=== PATIENT | female | born 1995 | race Hispanic/Latino ===

== ENCOUNTER 2019-02-26 09:42 | Emergency (ER) | payer BC ==
--- NOTE | 2019-02-26 11:09 | RAD REPORT ---
EXAM DESCRIPTION: RAD - Ankle Right 3 View - 02/26/2019 10:45 am CLINICAL HISTORY: Twist and fall, ankle pain COMPARISON: None. FINDINGS: Spiral fracture of the distal fibula is present. No angulation deformity on only very smal l 1 millimeter distraction. Small fracture fragments are present at the proximal end of the fracture site. Tibia is intact. No joint effusion seen. No joint space narrowing. Lateral soft tissue swelling . IMPRESSION: Distal right fibula fracture with no significant distraction or angulation deformity.
[2019-02-26] MEDS ORDERED: CEPHALEXIN 250 MG CAP ONE (11:42)
[2019-02-26] MEDS ORDERED: HYDROCODONE/APAP 5/325 MG TAB ONE (11:42)
--- NOTE | 2019-02-26 12:00 | ER ---
Nurse's Notes [facility] Name: Ana Rodriguez Age: 23 yrs Sex: Female : 1995 Arrival Date: 02/26/2019 Time: 09:44 Bed 13 Private MD: Becky Ward H Diagnosis: Fall on same level, unspecified;Spiral fx of right distal fibula Presentation: 02/26 10:10 Presenting complaint: Patient states: R ankle pain and swelling that began last night ss after falling from a standing position. Transition of care: patient was not received from another setting of care. Onset of symptoms was February 25, 2019. Risk Assessment: Do you want to hurt yourself or someone else? Patient reports no desire to harm self or others. Initial Sepsis Screen: Does the patient meet any 2 criteria? No. Patient's initial sepsis screen is negative. Does the patient have a suspected source of infection? No. Patient's initial sepsis screen is negative. Care prior to arrival: None. 10:10 Method Of Arrival: Ambulatory ss 10:10 Acuity: MARIE 4 ss [place] GRINDER: 10:15 LMP 02/18/2019 rb1 Historical: - Allergies: 10:11 No Known Allergies; ss - Home Meds: 10:11 None [Active]; ss - PMHx: 10:11 None; ss - PSHx: 10:11 None; ss - Immunization history:: Adult Immunizations up to date. - Social history:: Smoking status: Patient/guardian denies using tobacco. - Ebola Screening: : Patient denies exposure to infectious person Patient denies travel to an Ebola-affected area in the 21 days before illness onset. Screenin:15 Abuse screen: Denies threats or abuse. Nutritional screening: No deficits noted. rb1 Tuberculosis screening: No symptoms or risk factors identified. Fall Risk Fall in past 12 months (25 points). No secondary diagnosis (0 pts). No IV (0 pts). Ambulatory Aid- None/Bed Rest/Nurse Assist (0 pts). Gait- Normal/Bed Rest/Wheelchair (0 pts) Mental Status- Oriented to own ability (0 pts). Assessment: 10:15 General: Appears uncomfortable, Behavior is calm, cooperative. General: Pt. reports rb1 falling on the concrete last night. Denies hitting her head or LOC.. Pain: Complains of pain in right ankle Pain currently is 4 out of 10 on a pain scale. Aggravated by weight bearing. Neuro: Level of Consciousness is awake, alert, obeys commands, Oriented to person, place, time, situation. Cardiovascular: Capillary refill < 3 seconds is brisk in bilateral fingers. Respiratory: Airway is patent Respiratory effort is even, unlabored, Respiratory pattern is regular, symmetrical. GI: No signs and/or symptoms were reported involving the gastrointestinal system. : No signs and/or symptoms were reported regarding the genitourinary system. Derm: Skin is pink, warm \T\ dry. Derm: Abrasions noted to bilateral ankles and bilateral knees. Musculoskeletal: Swelling present in right ankle. 11:10 Reassessment: Patient appears in no apparent distress at this time. No changes from rb1 previously documented assessment. Mother at bedside. 12:30 Reassessment: Patient appears in no apparent distress at this time. Patient and/or rb1 family updated on plan of care and expected duration. Pain level reassessed. Patient is alert, oriented x 3, equal unlabored respirations, skin warm/dry/pink. Vital Signs: 10:11 BP 130 / 60; Pulse 89; Resp 16; Temp 98.2(TE); Pulse Ox 98% on R/A; Weight 99.79 kg; ss Height 5 ft. 5 in. (165.10 cm); Pain 4/10; 12:15 BP 117 / 71; Pulse 88; Resp 16; Temp 98.0(O); Pulse Ox 97% on R/A; Pain 2/10; rb1 10:11 Body Mass Index 36.61 (99.79 kg, 165.10 cm) ED Course: 09:44 Patient arrived in ED. ag5 09:45 Becky Ward DO is Private Physician. ag5 10:00 Trupti Lion [facility]C [facility]. snw 10:00 Martinez Gill MD is Attending Physician. snw 10:11 Triage completed. ss 10:11 Arm band placed on right wrist. ss 10:14 Chrissy Chaudhry, RN is Primary Nurse. rb1 10:15 Patient has correct armband on for positive identification. Bed in low position. Call rb1 light in reach. Side rails up X 1. Pulse ox on. NIBP on. 10:45 Ankle Right 3 View XRAY In Process Unspecified. EDMS 11:58 Genaro Avelar MD is Referral Physician. snw 12:15 RIGHT POSTERIOR SPLINT WITH RENETTA ZAMUDIO. Orthoglass splint: Posterior short lleg splint kj1 applied on right leg. 12:35 Patient did not have IV access during this emergency room visit. rb1 Administered Medications: 11:47 Drug: Hibiclens 4 % 1 application Route: Topical; Site: wound; rb1 11:49 Drug: [place] 5 mg-325 mg 1 tabs Route: PO; rb1 12:30 Follow up: Response: No adverse reaction; Pain is decreased rb1 11:49 Drug: KeFLEX 500 mg Route: PO; rb1 12:30 Follow up: Response: No adverse reaction; Pain is decreased rb1 Outcome: 12:00 Discharge ordered by MD. snw 12:35 Discharged to home via wheelchair, with crutches, with family. rb1 12:35 Condition: stable 12:35 Discharge instructions given to patient, Instructed on discharge instructions, follow up and referral plans. medication usage, Demonstrated understanding of instructions, follow-up care, medications, Prescriptions given X 3. 12:35 Patient left the ED. rb1 Signatures: Dispatcher [employer] EDVT Trupti Lion, MARKIE-C SUPERVISORY IT SPECIALIST-CsnSydnee Tijerina RN RN Chrissy Chaudhry RN RN rb1 Esthela Fleming ag5 Cecily Solano kj1 Corrections: (The following items were deleted from the chart) 12:41 12:40 Patient left the ED. rb1 rb1
--- NOTE | 2019-02-26 12:01 | EDPHYS ---
Physician Documentation [facility] Name: Ana Rodriguez Age: 23 yrs Sex: Female : 1995 Arrival Date: 02/26/2019 Time: 09:44 Bed 13 Private MD: Becky Ward H ED Physician Martinez Gill HPI: 02/26 11:55 This 23 yrs old Female presents to ER via Ambulatory with complaints of Fall snw Injury, Ankle Injury. 11:55 Details of fall: The patient fell from an upright position, while walking. Onset: The snw symptoms/episode began/occurred suddenly, last night. Associated injuries: The patient sustained right ankle, abrasion, decreased range of motion, painful injury, swelling. Severity of symptoms: At their worst the symptoms were moderate. The patient has not experienced similar symptoms in the past. It is unknown whether or not the patient has recently seen a physician. HIV/AIDS CARE NURSE: 10:15 LMP 02/18/2019 rb1 Historical: - Allergies: 10:11 No Known Allergies; ss - Home Meds: 10:11 None [Active]; ss - PMHx: 10:11 None; ss - PSHx: 10:11 None; ss - Immunization history:: Adult Immunizations up to date. - Social history:: Smoking status: Patient/guardian denies using tobacco. - Ebola Screening: : Patient denies exposure to infectious person Patient denies travel to an Ebola-affected area in the 21 days before illness onset. ROS: 11:55 Constitutional: Negative for fever, chills, and weight loss, Eyes: Negative for injury, snw pain, redness, and discharge, ENT: Negative for injury, pain, and discharge, Neck: Negative for injury, pain, and swelling, Cardiovascular: Negative for chest pain, palpitations, and edema, Respiratory: Negative for shortness of breath, cough, wheezing, and pleuritic chest pain, Abdomen/GI: Negative for abdominal pain, nausea, vomiting, diarrhea, and constipation, Back: Negative for injury and pain, : Negative for injury, bleeding, discharge, and swelling, Skin: Negative for injury, rash, and discoloration, Neuro: Negative for headache, weakness, numbness, tingling, and seizure. 11:55 MS/extremity: Positive for injury or acute deformity, pain, swelling, of the right ankle. Exam: 11:52 Constitutional: This is a well developed, well nourished patient who is awake, alert, snw and in no acute distress. Head/Face: Normocephalic, atraumatic. Eyes: Pupils equal round and reactive to light, extra-ocular motions intact. Lids and lashes normal. Conjunctiva and sclera are non-icteric and not injected. Cornea within normal limits. Periorbital areas with no swelling, redness, or edema. ENT: Nares patent. No nasal discharge, no septal abnormalities noted. Tympanic membranes are normal and external auditory canals are clear. Oropharynx with no redness, swelling, or masses, exudates, or evidence of obstruction, uvula midline. Mucous membranes moist. Neck: Trachea midline, no thyromegaly or masses palpated, and no cervical lymphadenopathy. Supple, full range of motion without nuchal rigidity, or vertebral point tenderness. No Meningismus. Chest/axilla: Normal chest wall appearance and motion. Nontender with no deformity. No lesions are appreciated. Cardiovascular: Regular rate and rhythm with a normal S1 and S2. No gallops, murmurs, or rubs. Normal PMI, no JVD. No pulse deficits. Respiratory: Lungs have equal breath sounds bilaterally, clear to auscultation and percussion. No rales, rhonchi or wheezes noted. No increased work of breathing, no retractions or nasal flaring. Abdomen/GI: Soft, non-tender, with normal bowel sounds. No distension or tympany. No guarding or rebound. No evidence of tenderness throughout. Back: No spinal tenderness. No costovertebral tenderness. Full range of motion. Neuro: Awake and alert, GCS 15, oriented to person, place, time, and situation. Cranial nerves II-XII grossly intact. Motor strength 5/5 in all extremities. Sensory grossly intact. Cerebellar exam normal. Normal gait. Psych: Awake, alert, with orientation to person, place and time. Behavior, mood, and affect are within normal limits. 11:52 Skin: Appearance: normal except for affected area, injury, abrasion(s), moderate sized abrasion noted, of the right medial malleolus, lateral ankle with edema, tenderness. Vital Signs: 10:11 BP 130 / 60; Pulse 89; Resp 16; Temp 98.2(TE); Pulse Ox 98% on R/A; Weight 99.79 kg; ss Height 5 ft. 5 in. (165.10 cm); Pain 4/10; 12:15 BP 117 / 71; Pulse 88; Resp 16; Temp 98.0(O); Pulse Ox 97% on R/A; Pain 2/10; rb1 10:11 Body Mass Index 36.61 (99.79 kg, 165.10 cm) ss MDM: 10:16 Patient medically screened. snw 12:01 Data reviewed: vital signs, nurses notes. Data interpreted: Pulse oximetry: on room air snw is 98 %. Interpretation: normal. Counseling: I had a detailed discussion with the patient and/or guardian regarding: the historical points, exam findings, and any diagnostic results supporting the discharge/admit diagnosis, radiology results, the need for outpatient follow up, to return to the emergency department if symptoms worsen or persist or if there are any questions or concerns that arise at home. Special discussion: Based on the history and exam findings, there is no indication for further emergent testing or inpatient evaluation. I discussed with the patient/guardian the need to see the orthopedic surgeon for further evaluation of the symptoms. I discussed with the patient/guardian the need to see the primary care provider for further evaluation of the symptoms. 02/26 10:17 Order name: Ankle Right 3 View XRAY; Complete Time: 11:34 snw 02/26 11:35 Order name: Posterior Orthoglass Ankle Splint; Complete Time: 12:23 snw 02/26 11:35 Order name: Crutches; Complete Time: 11:37 snw Administered Medications: 11:47 Drug: Hibiclens 4 % 1 application Route: Topical; Site: wound; rb1 11:49 Drug: [place] 5 mg-325 mg 1 tabs Route: PO; rb1 12:30 Follow up: Response: No adverse reaction; Pain is decreased rb1 11:49 Drug: KeFLEX 500 mg Route: PO; rb1 12:30 Follow up: Response: No adverse reaction; Pain is decreased rb1 Disposition: 17:53 Co-signature as Attending Physician, Martinez Gill MD. rn Disposition: 02/26/19 12:00 Discharged to Home. Impression: Fall on same level, unspecified, Spiral fx of right distal fibula. - Condition is Stable. - Discharge Instructions: Ankle Fracture, Cast or Splint Care, Adult, Crutch Use, Fall Prevention in the Home, RICE for Routine Care of Injuries. - Prescriptions for Mobic 7.5 mg Oral Tablet - take 1 tablet by ORAL route once daily take with food; 20 tablet. Ultram 50 mg Oral Tablet - take 1 tablet by ORAL route every 6 hours As needed; 12 tablet. Keflex 500 mg Oral Capsule - take 1 capsule by ORAL route every 8 hours for 10 days; 30 capsule. - Work release form, Medication Reconciliation Form, Thank You Letter, Antibiotic Education, Prescription Opioid Use form. - Follow up: Emergency Department; When: As needed; Reason: Worsening of condition. Follow up: Genaro Avelar MD; When: 5 - 6 days; Reason: Recheck today's complaints, Continuance of care. Signatures: Dispatcher [employer] EDMS Trupti Lion, DRAW TENDER-C DRAW TENDER-Csnw Martinez Gill MD MD rn Smirch, Shelby RN RN Chrissy Beyer, RN RN rb1 Corrections: (The following items were deleted from the chart) 12:40 12:00 02/26/2019 12:00 Discharged to Home. Impression: Fall on same level, unspecified; rb1 Spiral fx of right distal fibula. Condition is Stable. Forms are Medication Reconciliation Form, Thank You Letter, Antibiotic Education, Prescription Opioid Use. Follow up: Emergency Department; When: As needed; Reason: Worsening of condition. Follow up: Genaro Avelar; When: 5 - 6 days; Reason: Recheck today's complaints, Continuance of care. snw
[2019-02-26 13:29] VITALS: BP 117/71; TEMP 98; O2SAT 97
== END 2019-02-26 12:40 | disposition home or self-care (01) ==
LOC: ER 09:42
DX: S82.441A Displaced spiral fracture of shaft of right fibula, initial encounter for closed fracture (principal); W18.30XA Fall on same level, unspecified, initial encounter; Y93.9 Activity, unspecified; Y92.9 Unspecified place or not applicable
CPT/HCPCS: 99284

== ENCOUNTER 2019-05-26 09:21 | Emergency (ER) | payer BC ==
[2019-05-26] MEDS ORDERED: ACETAMINOPHEN 325 MG TABLET ONE (10:00)
[2019-05-26] MEDS ORDERED: KETOROLAC 30 MG/ML INJ ONE (10:01)
--- NOTE | 2019-05-26 10:16 | ER ---
Nurse's Notes [facility] Name: Ana Rodriguez Age: 24 yrs Sex: Female : 1995 Arrival Date: 05/26/2019 Time: 09:24 Bed 17 Private MD: Diagnosis: Influenza due to identified novel influenza A virus Presentation: 05/26 09:40 Presenting complaint: Patient states: ROSAS, light sensitivity, cough, sneezing since [facility] yesterday, temp yesterday was 103, reports no medications taken today. Transition of care: patient was not received from another setting of care. Onset of symptoms was May 25, 2019. Risk Assessment: Do you want to hurt yourself or someone else? Patient reports no desire to harm self or others. Initial Sepsis Screen: Does the patient meet any 2 criteria? HR > 90 bpm. No. Patient's initial sepsis screen is negative. Does the patient have a suspected source of infection? No. Patient's initial sepsis screen is negative. Care prior to arrival: None. 09:40 Method Of Arrival: Ambulatory [facility] 09:40 Acuity: MARIE 4 [facility] Triage Assessment: 09:43 Headache History: The patient has had previous headaches and this one is similar to [facility] previous episodes. General: Appears in no apparent distress. uncomfortable, ill, Behavior is calm, cooperative, appropriate for age. Pain: Complains of pain in ROSAS Pain currently is 6 out of 10 on a pain scale. Quality of pain is described as pressure, Pain began 1 day ago. Is continuous, Also complains of photophobia. EENT: No signs and/or symptoms were reported regarding the EENT system. Neuro: Level of Consciousness is awake, alert, obeys commands, Oriented to person, place, time, situation. Cardiovascular: Patient's skin is warm and dry. Respiratory: Airway is patent Respiratory effort is even, unlabored, Respiratory pattern is regular, symmetrical, Breath sounds are clear bilaterally. Derm: Skin is pink, warm \T\ dry. WORK ORDER SORTING CLERK: 09:43 LMP 05/25/2019 [facility] Historical: - Allergies: 09:43 No Known Allergies; jl7 - Home Meds: 09:43 Control [Active]; jl7 - PMHx: :43 None; jl7 - PSHx: 09:43 None; jl7 - Immunization history:: Adult Immunizations not up to date. - Social history:: Smoking status: Patient/guardian denies using tobacco. - Ebola Screening: : No symptoms or risks identified at this time. Screenin:30 Abuse screen: Denies threats or abuse. Denies injuries from another. Nutritional jl7 screening: No deficits noted. Tuberculosis screening: No symptoms or risk factors identified. Fall Risk None identified. Assessment: 09:30 General: See triage assessment. jl7 10:13 Reassessment: Patient appears in no apparent distress at this time. Patient is alert, ca1 oriented x 3, equal unlabored respirations, skin warm/dry/pink. Pain: Complains of pain in face and scalp. Vital Signs: 09:43 BP 113 / 72; Pulse 102; Resp 17 S; Temp 100(O); Pulse Ox 96% on R/A; Weight 102.06 kg jl7 (R); Height 5 ft. 5 in. (165.10 cm) (R); Pain 6/10; 10:13 BP 104 / 76; Pulse 102; Resp 16 S; Pulse Ox 98% on R/A; ca1 10:25 Temp 98(O); ca1 09:43 Body Mass Index 37.44 (102.06 kg, 165.10 cm) jl7 ED Course: 09:24 Patient arrived in ED. as 09:30 Nuria Mosley RN is Primary Nurse. jl7 09:30 Patient has correct armband on for positive identification. Bed in low position. Call jl7 light in reach. Side rails up X 1. Pulse ox on. NIBP on. 09:35 Víctor Massey PA is PHCP. jr8 09:35 Maritnez Gill MD is Attending Physician. jr8 09:42 Triage completed. jl7 09:43 Arm band placed on right wrist. jl7 09:50 Flu and/or RSV swab sent to lab. jl7 10:09 Report given to SRINI Linares. jl7 10:10 Primary Nurse role handed off by Nuria Mosley RN jl7 10:13 Milargos Mcdaniels RN is Primary Nurse. ca1 10:25 No provider procedures requiring assistance completed. Patient did not have IV access ca1 during this emergency room visit. Administered Medications: 10:04 Drug: Tylenol 650 mg Route: PO; jl7 10:22 Follow up: Response: No adverse reaction; Pain is decreased ca1 10:05 Drug: TORadol 30 mg Route: IM; Site: right deltoid; ca1 10:21 Follow up: Response: No adverse reaction; Temperature is decreased ca1 10: Drug: Tamiflu 75 mg Route: PO; ca1 10:22 Follow up: Response: Medication administered at discharge. ca1 Outcome: 10:14 Discharge ordered by MD. castillo 10:25 Discharged to home ambulatory. ca1 10: Condition: stable 10:25 Discharge instructions given to patient, Instructed on discharge instructions, follow up and referral plans. medication usage, Demonstrated understanding of instructions, follow-up care, medications, Prescriptions given X 1. 10:26 Patient left the ED. ca1 Signatures: Ana Pollock Josh, PA PA jr8 Leal, Jahala, RN RN jl7 Milagros Mcdaniels RN RN ca1
--- NOTE | 2019-05-26 10:16 | EDPHYS ---
Physician Documentation [facility] Name: Ana Rodriguez Age: 24 yrs Sex: Female : 1995 Arrival Date: 05/26/2019 Time: 09:24 Bed 17 Private MD: ED Physician Martinez Gill HPI: 05/26 10:11 This 24 yrs old Female presents to ER via Ambulatory with complaints of jr8 Headache. 10:11 The patient complains of pain to the diffuse . The patient describes the headache as jr8 throbbing. Onset: The symptoms/episode began/occurred acutely, today. Associated signs and symptoms: Pertinent positives: fever, Photophobia runny nose, cough, congestion, diarrhea. Severity of symptoms: At its worst the pain was moderate, in the emergency department the pain is unchanged. Headache History: Denies prior headaches. The patient has not experienced similar symptoms in the past. The patient has not recently seen a physician. 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 - Social history:: Smoking status: Patient/guardian denies using tobacco. - Ebola Screening: : No symptoms or risks identified at this time. ROS: 10:11 Eyes: Negative for injury, pain, redness, and discharge, Neck: Negative for injury, jr8 pain, and swelling, Cardiovascular: Negative for chest pain, palpitations, and edema, Back: Negative for injury and pain, MS/Extremity: Negative for injury and deformity, Skin: Negative for injury, rash, and discoloration. 10:11 Constitutional: Positive for fever. 10:11 ENT: Positive for rhinorrhea, sinus congestion. 10:11 Respiratory: Positive for cough, Negative for dyspnea on exertion, shortness of breath, sputum production, wheezing. 10:11 Abdomen/GI: Positive for diarrhea, Negative for abdominal pain, nausea, vomiting. 10:11 Neuro: Positive for headache. Exam: 10:11 Eyes: Pupils equal round and reactive to light, extra-ocular motions intact. Lids and jr8 lashes normal. Conjunctiva and sclera are non-icteric and not injected. Cornea within normal limits. Periorbital areas with no swelling, redness, or edema. ENT: Nares patent. No nasal discharge, no septal abnormalities noted. Tympanic membranes are normal and external auditory canals are clear. Oropharynx with no redness, swelling, or masses, exudates, or evidence of obstruction, uvula midline. Mucous membranes moist. Neck: Trachea midline, no thyromegaly or masses palpated, and no cervical lymphadenopathy. Supple, full range of motion without nuchal rigidity, or vertebral point tenderness. No Meningismus. Cardiovascular: Regular rate and rhythm with a normal S1 and S2. No gallops, murmurs, or rubs. Normal PMI, no JVD. No pulse deficits. Respiratory: Lungs have equal breath sounds bilaterally, clear to auscultation and percussion. No rales, rhonchi or wheezes noted. No increased work of breathing, no retractions or nasal flaring. Abdomen/GI: Soft, non-tender, with normal bowel sounds. No distension or tympany. No guarding or rebound. No evidence of tenderness throughout. Back: No spinal tenderness. No costovertebral tenderness. Full range of motion. Skin: Warm, dry with normal turgor. Normal color with no rashes, no lesions, and no evidence of cellulitis. MS/ Extremity: Pulses equal, no cyanosis. Neurovascular intact. Full, normal range of motion. Neuro: Awake and alert, GCS 15, oriented to person, place, time, and situation. Cranial nerves II-XII grossly intact. Motor strength 5/5 in all extremities. Sensory grossly intact. Cerebellar exam normal. Normal gait. Vital Signs: 09:43 BP 113 / 72; Pulse 102; Resp 17 S; Temp 100(O); Pulse Ox 96% on R/A; Weight 102.06 kg 7 (R); Height 5 ft. 5 in. (165.10 cm) (R); Pain 6/10; 10:13 BP 104 / 76; Pulse 102; Resp 16 S; Pulse Ox 98% on R/A; ca1 10:25 Temp 98(O); ca1 09:43 Body Mass Index 37.44 (102.06 kg, 165.10 cm) [facility] MDM: 09:35 Patient medically screened. jr8 10:14 Data reviewed: vital signs, nurses notes, lab test result(s), Flu: positive and as a jr8 result, I will discharge patient. Data interpreted: Pulse oximetry: on room air is 96 %. Interpretation: normal. Counseling: I had a detailed discussion with the patient and/or guardian regarding: the historical points, exam findings, and any diagnostic results supporting the discharge/admit diagnosis, lab results, the need for outpatient follow up, a family practitioner, to return to the emergency department if symptoms worsen or persist or if there are any questions or concerns that arise at home. Response to treatment: the patient's symptoms have markedly improved after treatment. 05/26 09:49 Order name: Influenza Screen (a \T\ B); Complete Time: 10:13 jr8 Administered Medications: 10:04 Drug: Tylenol 650 mg Route: PO; jl7 10:22 Follow up: Response: No adverse reaction; Pain is decreased ca1 10:05 Drug: TORadol 30 mg Route: IM; Site: right deltoid; ca1 10:21 Follow up: Response: No adverse reaction; Temperature is decreased ca1 10:21 Drug: Tamiflu 75 mg Route: PO; ca1 10:22 Follow up: Response: Medication administered at discharge. ca1 Disposition: 11:35 Co-signature as Attending Physician, Martinez Gill MD. rn Disposition: 05/26/19 10:14 Discharged to Home. Impression: Influenza due to identified novel influenza A virus. - Condition is Stable. - Discharge Instructions: Influenza, Adult. - Prescriptions for Tamiflu 75 mg Oral Capsule - take 1 capsule by ORAL route every 12 hours for 5 days; 10 capsule. - Medication Reconciliation Form, Thank You Letter, Antibiotic Education, Prescription Opioid Use, Work release form form. - Follow up: Private Physician; When: As needed; Reason: Recheck today's complaints, Continuance of care, Re-evaluation by your physician. - Problem is new. - Symptoms have improved. Signatures: Dispatcher [employer] EDMS Martinez Gill MD MD rn Roszak, Josh, PA PA jr8 Nuria Mosley RN RN jl7 Milagros Mcdaniels RN RN ca1 Corrections: (The following items were deleted from the chart) 10:26 10:14 05/26/2019 10:14 Discharged to Home. Impression: Influenza due to identified ca1 novel influenza A virus. Condition is Stable. Forms are Medication Reconciliation Form, Thank You Letter, Antibiotic Education, Prescription Opioid Use. Follow up: Private Physician; When: As needed; Reason: Recheck today's complaints, Continuance of care, Re-evaluation by your physician. Problem is new. Symptoms have improved. jr8
[2019-05-26] MEDS ORDERED: OSELTAMIVIR 75 MG CAP ONE (10:19)
[2019-05-26 10:35] VITALS: BP 104/76; O2SAT 98
[2019-05-26 10:36] VITALS: TEMP 98
== END 2019-05-26 10:26 | disposition home or self-care (01) ==
LOC: ER 09:21
DX: J10.1 Influenza due to other identified influenza virus with other respiratory manifestations (principal)
CPT/HCPCS: 87804; 96372; 99284

== ENCOUNTER 2020-12-29 15:52 | Emergency (ER) | payer BC ==
[2020-12-29 16:14] LABS: Urine Blood 1+ (Negative); Urine Glucose Negative (Negative); Urine Protein 1+ (Negative); Urine Specific Gravity 1.015 (1.005-1.030)
[2020-12-29 16:27] LABS: Urine Specific Gravity/Preg 1.015 (1.005-1.030)
--- NOTE | 2020-12-29 17:19 | RAD REPORT ---
EXAM DESCRIPTION: RAD - Chest Single View - 12/29/2020 4:50 pm CLINICAL HISTORY: Cough;Fever COMPARISON: None TECHNIQUE: AP portable chest image was obtained 12/29/2020 4:50 pm . FINDINGS: No dense consolidation seen. Medial right base lung markings are fractionally increased ov er the left. No failure or volume overload. Heart and vasculature are normal. No measurable pleural e ffusion and no pneumothorax. No acute bony abnormality seen. No acute aortic findings suspected. IMPRESSION: Suspected minimal or early pneumonia right lung base.
[2020-12-29 17:36] LABS: Basophils % 0.1 % (0-1.3); Hematocrit 39.6 % (36.0-45.0); Lymphocytes % 9.4 % (15.3-44.8); MPV 8.4 fL (7.6-11.3); RBC Red Blood Cell Count 4.92 M/uL (3.86-4.86)
[2020-12-29] MEDS ORDERED: NA CHLORIDE 0.9% 1,000 ML ONE (17:36)
[2020-12-29 17:40] LABS: ALT/SGPT 54 U/L (12-78); AST/SGOT 29 U/L (15-37); Albumin 3.5 g/dL (3.4-5.0); Alkaline Phosphatase 77 U/L (45-117); BUN Blood Urea Nitrogen 7 mg/dL (7-18); Bicarbonate 28 mmol/L (21-32); Bilirubin Direct 0.1 mg/dL (0-0.2); Bilirubin Total 0.5 mg/dL (0.2-1.0); Glucose Level 98 mg/dL (74-106); Lipase 70 U/L (73-393); Potassium 3.1 mmol/L (3.5-5.1); Protein, Total 8.1 g/dL (6.4-8.2); Sodium Level 137 mmol/L (136-145)
[2020-12-29 17:43] LABS: Urine Bacteria 20-50 /HPF (<20); Urine RBC <5 /HPF (NONE SEEN)
[2020-12-29] MEDS ORDERED: CEFTRIAXONE/SWI 1gm 1 GM/10 ML SYR ONE (18:33)
--- NOTE | 2020-12-29 18:34 | RAD REPORT ---
EXAM DESCRIPTION: CT - Abdomen Pelvis W Contrast - 12/29/2020 6:08 pm CLINICAL HISTORY: Flank pain;Fever COMPARISON: No comparisons TECHNIQUE: Biphasic, helical CT imaging of the abdomen and pelvis was performed following 100 ml non -ionic IV contrast. No oral contrast. All CT scans are performed using dose optimization technique as appropriate and may include automated exposure control or mA/KV adjustment according to patient size. FINDINGS: Two small sub centimeter noncalcified pulmonary nodules are seen at the right lung base. T hese are not likely of any long-term clinical significance in a patient this age. The noncalcified gr anulomas would be most likely. Diffuse fatty infiltration is present in the liver with no focal liver lesion. No portal vein abnorma lity. Spleen and pancreas are unremarkable. Gallbladder and biliary tree are also without suspicious finding. No hydronephrosis or obstructing calculus seen. There is heterogeneous enhancement of the renal paren chyma with areas of diminished attenuation and enhancement in both kidneys, worse on the right. No so lid mass lesion. Trace amount of edema seen in the perinephric fat. No bladder abnormalities. No adre nal abnormalities. Small cysts are present in the ovaries. No suspicious ovarian finding. No dilated bowel loops or bowel wall thickening. No appendicitis. No free air, free fluid or inflamma tory stranding. No hernia, mass or bulky lymphadenopathy. No suspicious bony findings. IMPRESSION: Mild bilateral pyelonephritis, worse on the right. No abscess or other emergent complication. Diffuse fatty infiltration of the liver.
[2020-12-29] MEDS ORDERED: CIPROFLOXACIN HCL 500 MG TAB ONE (19:12)
--- NOTE | 2020-12-29 19:31 | ER ---
Nurse's Notes [facility] Name: Ana Rodriguez Age: 25 yrs Sex: Female : 1995 Arrival Date: 12/29/2020 Time: 15:53 Bed 7 Private MD: Diagnosis: Pyelonephritis acute-bilateral Presentation: 12/29 15:56 Chief complaint: Patient states: headache, fever and fatigue x 3 days. [place] I had UTI ca1 last weekend but did not take antibiotics. Reports a little cough since yesterday. Coronavirus screen: Client denies travel out of the [place] in the last 14 days. cough unrelated to allergies, fatigue, fever, headache, Client presents with at least one sign or symptom that may indicate coronavirus-19. Standard/surgical mask placed on the client. Provider contacted for isolation considerations. Ebola Screen: Patient negative for fever greater than or equal to 101.5 degrees Fahrenheit, and additional compatible Ebola Virus Disease symptoms Patient denies exposure to infectious person. Patient denies travel to an Ebola-affected area in the 21 days before illness onset. No symptoms or risks identified at this time. Initial Sepsis Screen: Does the patient meet any 2 criteria? No. Patient's initial sepsis screen is negative. Does the patient have a suspected source of infection? No. Patient's initial sepsis screen is negative. Risk Assessment: Do you want to hurt yourself or someone else? Patient reports no desire to harm self or others. Onset of symptoms was December 29, 2020. 15:56 Method Of Arrival: Ambulatory ca1 15:56 Acuity: MARIE 3 ca1 Triage Assessment: 16:17 General:. Pain: Also complains of. ap3 16:17 General: Appears in no apparent distress. comfortable, Behavior is calm, cooperative, ap3 appropriate for age. Pain: Complains of pain in head Pain currently is 6 out of 10 on a pain scale. Pain began 2-3 days ago. 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 - Social history:: Smoking status: Patient denies any tobacco usage or history of. Screenin:17 Abuse screen: Denies threats or abuse. Nutritional screening: No deficits noted. ap3 Tuberculosis screening: No symptoms or risk factors identified. Fall Risk None identified. Assessment: 16:03 General: Appears in no apparent distress. comfortable, Behavior is calm, cooperative, ap3 appropriate for age. General: Reports fever for 1-2 days, feeling ill for 1-2 days. Pain: Complains of pain in head Pain does not radiate. Neuro: Level of Consciousness is awake, alert, obeys commands, Oriented to person, place, time, situation, Appropriate for age Moves all extremities. Gait is steady, Speech is normal. Neuro: Reports weakness. Cardiovascular: Denies chest pain, shortness of breath. Respiratory: Reports cough that is dry. GI: No signs and/or symptoms were reported involving the gastrointestinal system. : Reports dx of UTI last Thursday, but is not taking any medications for it. EENT: No signs and/or symptoms were reported regarding the EENT system. 18:39 Reassessment: Patient and/or family updated on plan of care and expected duration. Pain ap3 level reassessed. Patient is alert, oriented x 3, equal unlabored respirations, skin warm/dry/pink. SIGNIFICANT OTHER IS AT THE BEDSIDE. . 19:17 Reassessment: patient complaining of a sore neck. provider notified, and went to ap3 bedside. 19:43 Reassessment: Patient appears in no apparent distress at this time. Patient is alert, lp1 oriented x 3, equal unlabored respirations, skin warm/dry/pink. Patient states feeling better. Vital Signs: 15:56 BP 120 / 67; Pulse 108; Resp 18 S; Temp 99.8(O); Pulse Ox 99% on R/A; Weight 99.79 kg ca1 (R); Height 5 ft. 5 in. (165.10 cm) (R); Pain 6/10; 17:25 BP 113 / 82; Pulse 103; Resp 16; Pulse Ox 98% on R/A; ae4 18:35 BP 116 / 64; Pulse 106; Pulse Ox 100% on R/A; ap3 15:56 Body Mass Index 36.61 (99.79 kg, 165.10 cm) ca1 ED Course: 15:53 Patient arrived in ED. as 15:59 Triage completed. ca1 15:59 Arm band placed on right wrist. ca1 16:01 Patrice Hernandez, RN is Primary Nurse. ae4 16:17 Patient has correct armband on for positive identification. Bed in low position. Call ap3 light in reach. Side rails up X2. Adult w/ patient. Pulse ox on. NIBP on. Door closed. Noise minimized. 16:19 William Smith NP is PHCP. pm1 16:19 Alo Pace MD is Attending Physician. pm1 16:50 Chest Single View XRAY In Process Unspecified. EDMS 18:08 CT Abd/Pelvis - IV Contrast Only In Process Unspecified. EDMS 19:39 Primary Nurse role handed off by Patrice Hernandez, RN tt3 19:43 No provider procedures requiring assistance completed. IV discontinued, 20g IV to R AC lp1 DC'd. Administered Medications: 17:19 Drug: NS 0.9% 1000 ml Route: IV; Rate: 1000 ml; Site: right antecubital; ap3 18:16 Drug: Rocephin (cefTRIAXone) 1 grams Route: IV; Rate: calculated rate; Site: right ap3 antecubital; 18:34 Follow up: Response: No adverse reaction; IV Status: Completed infusion ap3 19:04 Drug: Cipro (ciprofloxacin) 500 mg Route: PO; ap3 19:04 Follow up: Response: No adverse reaction ap3 19:44 Drug: [place] (HYDROcodone-acetaminophen) (7.5 mg-325 mg) 1 tabs Route: PO; lp1 19:44 Follow up: Response: Medication administered at discharge. lp1 Outcome: 19:31 Discharge ordered by . pm1 19:44 Discharged to home ambulatory, with friend. lp1 19:44 Condition: good 19:44 Discharge instructions given to patient, Instructed on discharge instructions, follow up and referral plans. medication usage, Demonstrated understanding of instructions, follow-up care, medications, Prescriptions given X 2. 19:44 Patient left the ED. lp1 Addendum: 01/01/2021 07:40 Addendum: Culture Results: Positive urine culture. No further action required. Bacteria s s sensitive to prescribed antibiotic. Signatures: Dispatcher [employer] Ana Keys Shelby, RN RN ss Veronique Littlejohn, RN RN lp1 William Smith, CASE MANAGER CASE MANAGER pm1 Jasmine Ureña RN RN ap3 Milagros Mcdaniels, RN RN ca1 Patrice Hernandez RN RN ae4 [place] tt3
--- NOTE | 2020-12-29 19:31 | EDPHYS ---
Physician Documentation [facility] Name: Ana Rodriguez Age: 25 yrs Sex: Female : 1995 Arrival Date: 12/29/2020 Time: 15:53 Bed 7 Private MD: ED Physician Alo Pace HPI: 12/29 17:59 This 25 yrs old Female presents to ER via Ambulatory with complaints of Fever, pm1 Headache, Fatigue. 17:59 The patient reports fever, not measured (subjective). Onset: The symptoms/episode pm1 began/occurred 3 day(s) ago. Modifying factors: there are no obvious modifying factors. Associated signs and symptoms: Pertinent positives: cough, headache, Pertinent negatives: abdominal pain, diarrhea, earache, nausea, sore throat, vomiting. Severity of symptoms: in the emergency department the symptoms are unchanged. The patient has not recently seen a physician. Patient with burning and frequency onset 7 days ago that lasted for 3 days. Reports resolution of urinary symptoms. 3 days ago onset of fever and flank pain. Cough onset yesterday. 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 - Social history:: Smoking status: Patient denies any tobacco usage or history of. ROS: 17:59 Eyes: Negative for injury, pain, redness, and discharge, ENT: Negative for injury, pm1 pain, and discharge, Neck: Negative for injury, pain, and swelling, Cardiovascular: Negative for chest pain, palpitations, and edema. 17:59 MS/Extremity: Negative for injury and deformity, Skin: Negative for injury, rash, and discoloration. 17:59 Constitutional: Positive for fever, Negative for poor PO intake. 17:59 Respiratory: Positive for cough, Negative for shortness of breath, wheezing. 17:59 Back: Positive for flank pain, bilaterally. 17:59 : Positive for urinary frequency, burning with urination. 17:59 Neuro: Positive for headache, Negative for numbness, tingling, weakness. Exam: 17:59 Constitutional: This is a well developed, well nourished patient who is awake, alert, pm1 and in no acute distress. Head/Face: Normocephalic, atraumatic. 17:59 Back: No spinal tenderness. No costovertebral tenderness. Full range of motion. Skin: Warm, dry with normal turgor. Normal color with no rashes, no lesions, and no evidence of cellulitis. MS/ Extremity: Pulses equal, no cyanosis. Neurovascular intact. Full, normal range of motion. 17:59 Eyes: Exam is negative for acute changes, Extraocular movements: no acute changes, Conjunctiva: no acute changes, no injection, Sclera: no acute changes, icterus, is not appreciated. 17:59 ENT: Exam is negative for acute changes, Mouth: Lips: normal, Oral mucosa: normal, pink and intact, moist. 17:59 Cardiovascular: Exam negative for acute changes, Rate: tachycardic, Rhythm: regular, Pulses: no pulse deficits are appreciated. 17:59 Respiratory: Exam negative for acute changes, respiratory distress, shortness of breath, Breath sounds: are clear throughout. 17:59 Abdomen/GI: Exam negative for acute changes, Inspection: abdomen appears normal, Palpation: abdomen is soft and non-tender, in all quadrants. 17:59 Neuro: Exam negative for acute changes, Orientation: is normal, Mentation: is normal, Motor: is normal, moves all fours. Vital Signs: 15:56 BP 120 / 67; Pulse 108; Resp 18 S; Temp 99.8(O); Pulse Ox 99% on R/A; Weight 99.79 kg ca1 (R); Height 5 ft. 5 in. (165.10 cm) (R); Pain 6/10; 17:25 BP 113 / 82; Pulse 103; Resp 16; Pulse Ox 98% on R/A; ae4 18:35 BP 116 / 64; Pulse 106; Pulse Ox 100% on R/A; ap3 15:56 Body Mass Index 36.61 (99.79 kg, 165.10 cm) ca1 MDM: 16:20 Patient medically screened. pm1 19:29 Data reviewed: vital signs. Data interpreted: Pulse oximetry: on room air is 100 %. pm1 Interpretation: normal. 19:29 Counseling: I had a detailed discussion with the patient and/or guardian regarding: the pm1 historical points, exam findings, and any diagnostic results supporting the discharge/admit diagnosis, lab results, radiology results, the need for outpatient follow up, to return to the emergency department if symptoms worsen or persist or if there are any questions or concerns that arise at home. 12/29 16:14 Order name: Urine Dipstick-Ancillary; Complete Time: 16:24 EDMS 12/29 16:15 Order name: Urine --Ancillary (enter results) em12/29 16:16 Order name: Urine --Ancillary; Complete Time: 16:31 EDMS 12/29 16:24 Order name: Urine Microscopic Only; Complete Time: 17:49 pm1 12/29 16:28 Order name: Basic Metabolic Panel pm12/29 16:28 Order name: CBC with Diff pm12/29 16:28 Order name: Hepatic Function pm12/29 16:28 Order name: Lipase; Complete Time: 17:49 pm1 12/29 16:29 Order name: COVID-19 : Document "Date of Symptom Onset" if Symptomatic. pm1 12/29 16:29 Order name: Basic Metabolic Panel; Complete Time: 17:49 EDMS 12/29 16:29 Order name: CBC with Automated Diff; Complete Time: 17:37 EDMS 12/29 16:29 Order name: Liver (Hepatic) Function; Complete Time: 17:49 EDMS 12/29 16:29 Order name: Flu; Complete Time: 17:49 pm12/29 16:29 Order name: Strep; Complete Time: 17:35 pm12/29 16:28 Order name: IV Saline Lock; Complete Time: 17:14 pm12/29 16:28 Order name: Labs collected and sent; Complete Time: 17:14 pm12/29 16:28 Order name: Chest Single View XRAY; Complete Time: 17:26 pm12/29 17:42 Order name: Throat Culture ED12/29 17:43 Order name: Urine Culture EDMS 12/29 17:50 Order name: CT Abd/Pelvis - IV Contrast Only; Complete Time: 18:45 pm12/29 18:36 Order name: SARS-COV-2 RT PCR; Complete Time: 18:45 EDMS Administered Medications: 17:19 Drug: NS 0.9% 1000 ml Route: IV; Rate: 1000 ml; Site: right antecubital; ap3 18:16 Drug: Rocephin (cefTRIAXone) 1 grams Route: IV; Rate: calculated rate; Site: right ap3 antecubital; 18:34 Follow up: Response: No adverse reaction; IV Status: Completed infusion ap3 19:04 Drug: Cipro (ciprofloxacin) 500 mg Route: PO; ap3 19:04 Follow up: Response: No adverse reaction ap3 19:44 Drug: [place] (HYDROcodone-acetaminophen) (7.5 mg-325 mg) 1 tabs Route: PO; lp1 19:44 Follow up: Response: Medication administered at discharge. lp1 Disposition Summary: 12/29/20 19:31 Discharge Ordered Location: Home pm1 Problem: new pm1 Symptoms: have improved pm1 Condition: Stable pm1 Diagnosis - Pyelonephritis acute - bilateral pm1 Followup: pm1 - With: Emergency Department - When: As needed - Reason: Worsening of condition Followup: pm1 - With: Private Physician - When: 2 - 3 days - Reason: Recheck today's complaints, Continuance of care, Re-evaluation by your physician Discharge Instructions: - Discharge Summary Sheet pm1 - Pyelonephritis, Adult pm1 Forms: - Medication Reconciliation Form pm1 - Thank You Letter pm1 - Antibiotic Education pm1 - Prescription Opioid Use pm1 Prescriptions: - acetaminophen-codeine 300-15 mg Oral tablet - take 2 tablet by ORAL route every 6 hours As needed as needed; 20 tablet; pm1 Refills: 0, Product Selection Permitted - Cipro 500 mg Oral Tablet - take 1 tablet by ORAL route every 12 hours for 10 days; 20 tablet; Refills: 0, pm1 Product Selection Permitted Signatures: Dispatcher [employer] EDMS Veronique Littlejohn RN RN lp1 William Smith, RN INTEGRITY RN INTEGRITY pm1 Jasmine Ureña RN RN ap3 Milagros Mcdaniels RN RN ca1 Corrections: (The following items were deleted from the chart) 17:42 16:29 CORONAVIRUS ordered. EDMS EDMS
[2020-12-29 19:52] VITALS: TEMP 99.8
[2020-12-29 19:55] VITALS: BP 116/64; O2SAT 100
[2020-12-29] MEDS ORDERED: HYDROCODONE/APAP 7.5/325 MG TAB ONE (19:55)
== END 2020-12-29 19:44 | disposition home or self-care (01) ==
LOC: ER 15:52
DX: N10 Acute pyelonephritis (principal); Z20.822 Contact with and (suspected) exposure to COVID-19
CPT/HCPCS: 96365; 87070; 87088; 85025; 87086; 80048; 36415; 81025; 80076; 87081; 87077; 87186; 83690; 87804 ×2; 74177; 71045; 99284; U0003; Q9967; J0696; J7030; 81003; 81015

== ENCOUNTER 2024-05-27 09:33 | Emergency (ER) | payer BC ==
--- NOTE | 2024-05-27 10:29 | ER ---
Nurse's Notes [facility] Name: Ana Rodriguez Age: 29 yrs Sex: Female : 1995 Arrival Date: 05/27/2024 Time: 09:33 Bed 12 Private MD: Diagnosis: Viral exanthem Presentation: 05/27 09:39 Chief complaint: Patient states: facial rash that began 2 days ago. Coronavirus screen: ss Client denies travel out of the [place] in the last 14 days. Ebola Screen: Patient denies exposure to infectious person. Patient denies travel to an Ebola-affected area in the 21 days before illness onset. Onset: The symptoms/episode began/occurred 2 day(s) ago. Anaphylaxis evaluation, no signs or symptoms of anaphylaxis were noted. Initial Sepsis Screen: Does the patient meet any 2 criteria? No. Patient's initial sepsis screen is negative. Does the patient have a suspected source of infection? No. Patient's initial sepsis screen is negative. Risk Assessment: Do you want to hurt yourself or someone else? Patient reports no desire to harm self or others. Onset of symptoms was May 25, 2024. 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 - Social history:: Smoking status: Patient denies any tobacco usage or history of. Screenin:33 [facility] ED Fall Risk Assessment (Adult) History of falling in the last 3 months, ss including since admission No falls in past 3 months (0 pts) Confusion or Disorientation No (0 pts) Intoxicated or Sedated No (0 pts) Impaired Gait No (0 pts) Mobility Assist Device Used No (0 pt) Altered Elimination No (0 pt) Score/Fall Risk Level 0 - 2 = Low Risk Oriented to surroundings, Maintained a safe environment. Abuse screen: Denies threats or abuse. Denies injuries from another. Nutritional screening: No deficits noted. Tuberculosis screening: No symptoms or risk factors identified. Assessment: 09:45 General: Appears in no apparent distress. comfortable, Behavior is calm, cooperative. ss Pain: Denies pain. Neuro: Level of Consciousness is awake, alert, obeys commands. Respiratory: Airway is patent Respiratory effort is even, unlabored, Respiratory pattern is regular, symmetrical. EENT: Nares are clear Oral mucosa is moist. Throat is clear. Derm: Skin is intact, is healthy with good turgor, Skin is dry, Skin is pink, warm \T\ dry. normal. Derm: Rash noted that is pinpoint pustules noted to chin area, L check. 10:33 Reassessment: No changes from previously documented assessment. ss Vital Signs: 09:39 BP 132 / 71; Pulse 82; Resp 15; Temp 97.8; Pulse Ox 100% on R/A; Weight 104.33 kg; ss Height 5 ft. 5 in. ; Pain 0/10; 09:39 Body Mass Index 38.27 (104.33 kg, 165.1 cm) ss 09:39 Pain Scale: Adult ss ED Course: 09:35 Patient arrived in ED. ra3 09:36 Chritsina Rutherford MD is Attending Physician. sp3 09:40 Triage completed. ss 09:40 Arm band placed on right wrist. ss 10:29 Sydnee Larsen RN is Primary Nurse. ss 10:33 Patient has correct armband on for positive identification. Bed in low position. Call ss light in reach. 10:33 No provider procedures requiring assistance completed. Patient did not have IV access ss during this emergency room visit. Administered Medications: No medications were administered Medication: 10:33 VIS not applicable for this client. ss Outcome: 10:28 Discharge ordered by . sp3 10:36 Discharged to home ambulatory, ss 10:36 Condition: good 10:36 Discharge instructions given to patient, Instructed on discharge instructions, follow up and referral plans. Demonstrated understanding of instructions, follow-up care, 10:36 Patient left the ED. ss Signatures: Sydnee Larsen RN RN Christina Rutherford MD MD sp3 Tessie Bailey ra3
--- NOTE | 2024-05-27 10:29 | EDPHYS ---
Physician Documentation [facility] Name: Ana Rodriguez Age: 29 yrs Sex: Female : 1995 Arrival Date: 05/27/2024 Time: 09:33 Bed 12 Private MD: ED Physician Christina Rutherford HPI: 05/27 09:54 This 29 yrs old Female presents to ER via Ambulatory with complaints of rash. sp3 09:54 29-year-old female with no past medical history presents with rash on her face for 3 sp3 days. Prior to the rash she had sore throat for 4 days. She denies any other symptoms including fever, rash elsewhere, body aches, chest pain, shortness of breath, abdominal pain, vomiting, diarrhea or any other signs or symptoms on ROS at this time. Patient is mildly pruritic.. 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 - Social history:: Smoking status: Patient denies any tobacco usage or history of. ROS: 09:54 Constitutional: Negative for fever, chills, and weight loss, Eyes: Negative for injury, sp3 pain, redness, and discharge, Neck: Negative for injury, pain, and swelling, Cardiovascular: Negative for chest pain, palpitations, and edema, Respiratory: Negative for shortness of breath, cough, wheezing, and pleuritic chest pain, Abdomen/GI: Negative for abdominal pain, nausea, vomiting, diarrhea, and constipation, Back: Negative for injury and pain, MS/Extremity: Negative for injury and deformity, Neuro: Negative for headache, weakness, numbness, tingling, and seizure, Psych: Negative for depression, anxiety, suicide ideation, homicidal ideation, and hallucinations, Allergy/Immunology: Negative for hives, rash, and allergies, Hematologic/Lymphatic: Negative for swollen nodes, abnormal bleeding, and unusual bruising, 09:54 All other systems are negative, Exam: 09:55 Constitutional: This is a well developed, well nourished patient who is awake, alert, sp3 and in no acute distress. Head/Face: Normocephalic, atraumatic. Eyes: Pupils equal round and reactive to light, extra-ocular motions intact. Lids and lashes normal. Conjunctiva and sclera are non-icteric and not injected. Cornea within normal limits. Periorbital areas with no swelling, redness, or edema. ENT: Nares patent. No nasal discharge, no septal abnormalities noted. External auditory canals are clear. Oropharynx with no redness, swelling, or masses, exudates, or evidence of obstruction, uvula midline. Mucous membranes moist. Neck: Trachea midline, no thyromegaly or masses palpated, and no cervical lymphadenopathy. Supple, full range of motion without nuchal rigidity, or vertebral point tenderness. No Meningismus. Chest/axilla: Normal chest wall appearance and motion. Nontender with no deformity. No lesions are appreciated. Cardiovascular: Regular rate and rhythm with a normal S1 and S2. No gallops, murmurs, or rubs. Normal PMI, no JVD. No pulse deficits. Respiratory: Lungs have equal breath sounds bilaterally, clear to auscultation and percussion. No rales, rhonchi or wheezes noted. No increased work of breathing, no retractions or nasal flaring. Abdomen/GI: Soft, non-tender, with normal bowel sounds. No distension or tympany. No guarding or rebound. No evidence of tenderness throughout. Back: No spinal tenderness. No costovertebral tenderness. Full range of motion. MS/ Extremity: Pulses equal, no cyanosis. Neurovascular intact. Full, normal range of motion. Neuro: Awake and alert, GCS 15, oriented to person, place, time, and situation. Cranial nerves II-XII grossly intact. Motor strength 5/5 in all extremities. Sensory grossly intact. Cerebellar exam normal. Normal gait. Psych: Awake, alert, with orientation to person, place and time. Behavior, mood, and affect are within normal limits. 09:55 Skin: Scarlatiniform type rash on face and upper neck area. No pustules or vesicles noted. Face is mildly swollen. No airway compromise.. Vital Signs: 09:39 BP 132 / 71; Pulse 82; Resp 15; Temp 97.8; Pulse Ox 100% on R/A; Weight 104.33 kg; ss Height 5 ft. 5 in. ; Pain 0/10; 09:39 Body Mass Index 38.27 (104.33 kg, 165.1 cm) ss 09:39 Pain Scale: Adult ss MDM: 09:37 Medical Screening Exam initiated sp3 09:55 Data reviewed: vital signs, nurses notes, lab test result(s). ED course: 29-year-old sp3 female with facial rash. Differential diagnosis includes viral exanthem versus scarlet fever. And at highly suspicious for any other critical process, sepsis, shock, early lupus, cellulitis, or any other process. Disposition pending workup and patient course with any medications as indicated.. 10:28 ED course: Strep screen negative. We will treat with viral exanthem unless evidence sp3 emerges for change in course. Follow-up with dermatology if not resolved in 7 to 10 days.. 12 09:48 Order name: Strep; Complete Time: 10:27 sp3 05/27 10:29 Order name: Throat Culture EDMS Administered Medications: No medications were administered Disposition Summary: 05/27/24 10:28 Discharge Ordered Notes: Location: Home sp3 Condition: Stable sp3 Diagnosis - Viral exanthem sp3 Followup: sp3 - With: Private Physician - When: Upon discharge from the Emergency Department - Reason: Continuance of care Discharge Instructions: - Discharge Summary Sheet sp3 - Rash, Adult sp3 Forms: - Medication Reconciliation Form sp3 - Antibiotic Education sp3 - Prescription Opioid Use sp3 - Patient Portal Instructions sp3 - Leadership Thank You Letter sp3 Signatures: Dispatcher [employer] Sydnee Nielsen RN RN ss Patel, Setul, MD MD sp3
[2024-05-27 13:13] VITALS: BP 132/71; TEMP 97.8; O2SAT 100
--- OUTSIDE RECORDS SUMMARY | 2024-05-30 08:00 | XMS REPORT | Continuity of Care Document ---
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 [id number] [facility]
== END 2024-05-27 10:36 | disposition home or self-care (01) ==
LOC: ER 09:33
DX: B09 Unspecified viral infection characterized by skin and mucous membrane lesions (principal)
CPT/HCPCS: 87070; 87081; 99282